=== PATIENT | female | born 1945 | race Hispanic/Latino ===

== ENCOUNTER 2018-04-03 16:10 | Emergency (ER) | payer MEDICARE, OTHER ==
[~2018-04-03] VITALS: Ht 149.9 cm; Wt 71.2 kg
[~2018-04-03 16:10] MED LIST: ASPIRIN81 MG; BENADRYL25 M1; CALCIUM CARBON500 MG PO; PROLIA60 MG/1 ML INJ; TYLENOL WITH C1 EACH PO; Z.2.CALCIUM 600 +1 E; [UNRECOGNIZED DRUG - OTHER]
== END 2018-04-03 17:46 | disposition home or self-care (01) ==
LOC: FSED 16:10
DX: R05 Cough (principal); J20.9 Acute bronchitis, unspecified; N30.90 Cystitis, unspecified without hematuria
CPT/HCPCS: 99282

== ENCOUNTER 2018-08-22 11:26 | Emergency (ER) | payer MEDICARE ==
[~2018-08-22] VITALS: Ht 149.9 cm; Wt 71.7 kg
--- OUTSIDE RECORDS SUMMARY | 2018-08-22 11:30 | XMS REPORT ---
Author Author [facility] Address Unknown Phone Unavailable Care Team Providers Care Grooming Salon Manager Name Role Phone Unavailable Unavailable Problems This patient has no known problems. Allergies, Adverse Reactions, Alerts This patient has no known allergies or adverse reactions. Medications This patient has no known medications. Results Test Description Test Time Test Comments Text Results Atomic Results Result Comments SCR MAMM BILATERAL BLAJIT CAD DIGITAL 2018-04-19 08:21:21 - SCR MAMM BILATERAL BALJIT CAD DIGITALBILATERAL DIGITAL SCREENING MAMMOGRAM 3D/2D WITH CAD: 04/16/2018CLINICAL: Asymptomatic. Digital breast tomosynthesis was performed in addition to routine CC and MLO views. Current mammographic images were evaluated by either a [employer] M-Vu or a [employer] ImageChecker CAD (computer aided detection system). Comparison is made to exams dated 04/03/2017 mammogram, 12/11 mammogram, and 11/24/2014 mammogram - [facility]. There are scattered fibroglandular tissues in both breasts. No suspicious mass, architectural distortion, malignant type calcification, or lymph node abnormality detected. Breast architecture is stable compared to prior exams.IMPRESSION: NEGATIVEThere is no mammographic evidence of malignancy. Resume annual screening mammography in one year. Ernst Godinez M.D. ss/penrad:04/19/2018 08:21:21 copy to: Snow Angelo M.D., ph: [phone], fax: [phone] Technologist: Tracy PHILLIP, [facility] [place] sent: BIRADS 1-2 Normal Mammogram BI-RADS: 1 Negative
[2018-08-22] MEDS ORDERED: HYDROCODONE/APAP 5MG-325MG TAB ONE (11:58)
[2018-08-22] MEDS ORDERED: ONDANSETRON HCL 4 MG ORAL DISINTEGRATING TAB ONE (11:58)
[2018-08-22] MEDS ORDERED: IBUPROFEN 200 MG TAB ONE (11:58)
[2018-08-22] MEDS ORDERED: HYDROCODONE/APAP 5MG-325MG TAB PO ONE (12:00)
[2018-08-22] MEDS ORDERED: ONDANSETRON HCL 4 MG ORAL DISINTEGRATING TAB PO ONE (12:00)
--- NOTE | 2018-08-22 12:15 | Diagnostic Imaging Report ---
Exam: Right/ Left foot AP and lateral. Clinical History: Right foot pain, history of stress fracture Comparison: None. Findings: 2 views of the right foot. There is decreased bone mineralization, which limits evaluation of the bony structures.. No acute, displaced fracture or dislocation. No lytic or blastic lesions. Minimal degenerative changes in the midfoot/hindfoot joints. No significant soft tissue swelling. Impression: 1. Generalized osteopenia, which limits evaluation of the bony structures. No acute, displaced fracture or dislocation, within the limitations of this study. Signed by: Dr. Reg Kramer M.D. on 08/22/2018 12:12 PM
[2018-08-22] MEDS ORDERED: IBUPROFEN 200 MG TAB PO ONE (12:30)
[2018-08-22 12:48] VITALS: BP 173/90
[2018-08-22] MEDS ORDERED: ENOXAPARIN SODIUM INJ 100 MG/ML SYR SC ONE (17:40)
[2018-08-22] MEDS ORDERED: ASPIRIN 81 MG CHEW TAB ONE (17:40)
[2018-08-22] MEDS ORDERED: ALBUTEROL SULF 0.083% NEB SOLN 3 ML NEB ONE (17:41)
[2018-08-22] MEDS ORDERED: IPRATROPIUM BROMIDE 0.02% 2.5 ML NEB ONE (17:42)
[2018-08-22] MEDS ORDERED: FAMOTIDINE 20 MG/2 ML VIAL IV ONE (17:43)
[2018-08-22] MEDS ORDERED: SODIUM CHLORIDE 0.9% 500ML 500 ML ONE (17:43)
[2018-08-22] MEDS ORDERED: AZITHROMYCIN 500MG/NS 250 ML 250 ML ONE (17:43)
[2018-08-22] MEDS ORDERED: CLONIDINE HCL 0.1 MG TAB ONE (18:31)
== END 2018-08-22 12:36 | disposition home or self-care (01) ==
LOC: FSED 11:26
DX: S93.621A Sprain of tarsometatarsal ligament of right foot, initial encounter (principal); X50.1XXA Overexertion from prolonged static or awkward postures, initial encounter; Y92.008 Other place in unspecified non-institutional (private) residence as the place of occurrence of the external cause
CPT/HCPCS: 29515; 73620; 99283; J0456; J1650; J7040; Q0162

== ENCOUNTER → 2019-01-22 | Day surgery (SDC) | payer MEDICARE, OTHER ==
[2019-01-20 14:22] LABS: BASOPHILS % 0.1 % (0.0-1.0); EOSINOPHILS % 0.3 % (0.0-6.0); HEMATOCRIT 41.7 % (34.2-44.1); HEMOGLOBIN 13.6 g/dL (12.0-16.0); LYMPHOCYTES % 1.9 % (18.0-39.1); MEAN CORPUSCULAR HEMOGLOBIN 31.9 pg (28-32); MEAN CORPUSCULAR HGB CONC 32.6 g/dL (31-35); MEAN CORPUSCULAR VOLUME 97.9 fL (81-99); MONOCYTES % 0.7 % (4.4-11.3); NEUTROPHILS % 5.3 % (38.7-80.0); PLATELET COUNT 269 x10e3/uL (140-360); RED BLOOD COUNT 4.26 x10e6/uL (3.6-5.1)
[~2019-01-22] MED LIST changes: +CALCIUM PO; +FENTANYL CITRATE/PF 100MCG/2 ML INJ ONE; +HYOSCYAMINE 0.125 MG TAB ONE; +MIDAZOLAM HCL 2 MG/2 ML VIAL ONE; +OMEPRAZOLE40 MG PO; +PROPOFOL IV EMULSION 10 MG/ML 50 ML VIAL ONE; +VIT C PO; +VIT D PO
--- NOTE | 2019-01-22 19:42 | Operative Report ---
DATE OF PROCEDURE: 01/22/2019 SURGEON: Nicho Guzman MD PROCEDURE: Colonoscopy with polypectomy. INDICATIONS FOR COLONOSCOPY: Surveillance colonoscopy, personal history of colon polyps. MEDICATIONS: The patient was done under MAC. Please see anesthesiologist's note. PROCEDURE IN DETAIL: With the patient in left lateral decubitus position, a flexible fiberoptic Olympus colonoscope was inserted into the rectum with ease and advanced all the way to the cecum. Two polyps were removed per cold snare polypectomy from the cecum. The scope was then withdrawn slowly. Mucosa overlying the ascending and the transverse appeared to be within normal limits. Distal descending and sigmoid colon, the prep was suboptimal with retained fecal material, but there was no obvious obstructing or constricting lesions. Minimal diverticulosis was noted in the sigmoid colon. The rectum appeared to be within normal limits. The scope was then retroflexed into the distal rectum and small internal hemorrhoids were noted, none of which was actively bleeding. The scope was then straightened out. It was subsequently withdrawn. The patient tolerated the procedure well. IMPRESSION: 1. Suboptimal prep, left colon. 2. Cecal polyps x2, removed per cold snare polypectomy. 3. Diverticulosis, minimal. 4. Internal hemorrhoids, none actively bleeding. PLAN: Follow up histology. Initiate high-fiber, low-fat diet. Initiate high-fiber supplement. The patient might benefit from a followup colonoscopy in 1-2 years after a better prep. Nicho Guzman MD [facility] [place][id number] cc: Catia Cat MD
== END | disposition home or self-care (01) ==
LOC: OR 14:30
PROVIDERS: ATTEND Internal Medicine Gastroenterology
DX: Z12.11 Encounter for screening for malignant neoplasm of colon (principal); Z68.30 Body mass index [BMI] 30.0-30.9, adult; Z88.5 Allergy status to narcotic agent; Z88.0 Allergy status to penicillin; D12.0 Benign neoplasm of cecum; K57.30 Diverticulosis of large intestine without perforation or abscess without bleeding; K64.8 Other hemorrhoids
CPT/HCPCS: 36415; 45385; 85025; 93005; J2250; J2704; J3010; 45380

== ENCOUNTER → 2021-04-10 | Outpatient (CLI) | payer MEDICARE ==
[~2021-04-10] MED LIST changes: -FENTANYL CITRATE/PF 100MCG/2 ML INJ ONE; -HYOSCYAMINE 0.125 MG TAB ONE; -MIDAZOLAM HCL 2 MG/2 ML VIAL ONE; -PROPOFOL IV EMULSION 10 MG/ML 50 ML VIAL ONE
== END ==
LOC: DX 10:07
PROVIDERS: ATTEND Internal Medicine
DX: M85.88 Other specified disorders of bone density and structure, other site (principal)
CPT/HCPCS: 77080

== ENCOUNTER → 2021-04-29 | Outpatient (CLI) | payer MEDICARE | LOC: MAMMO 12:45 | PROVIDERS: ATTEND Obstetrics & Gynecology | DX: Z12.31 Encounter for screening mammogram for malignant neoplasm of breast (principal) | CPT/HCPCS: 77067 ==

== ENCOUNTER → 2022-05-02 | Outpatient (CLI) | payer MEDICARE | LOC: DX 14:24 | PROVIDERS: ATTEND Internal Medicine | DX: M85.88 Other specified disorders of bone density and structure, other site (principal); M54.50 Low back pain, unspecified; M25.551 Pain in right hip | CPT/HCPCS: 72100; 77080 ==

== ENCOUNTER → 2022-06-23 | Outpatient (CLI) | payer MEDICARE | LOC: RAD 14:13 | PROVIDERS: ATTEND Orthopaedic Surgery | DX: M25.362 Other instability, left knee (principal) ==

== ENCOUNTER → 2023-11-10 | Outpatient (REF) | payer MEDICARE | LOC: MAMMO 13:00 | PROVIDERS: ATTEND Internal Medicine | DX: Z12.31 Encounter for screening mammogram for malignant neoplasm of breast (principal) | CPT/HCPCS: 77067 ==

== ENCOUNTER → 2024-05-18 | Outpatient (REF) | payer MEDICARE | LOC: DX 12:29 | PROVIDERS: ATTEND Internal Medicine | DX: M81.0 Age-related osteoporosis without current pathological fracture (principal); Z78.0 Asymptomatic menopausal state | CPT/HCPCS: 77080 ==

== ENCOUNTER → 2024-09-26 | Outpatient (REF) | payer MEDICARE | LOC: DX 12:41 | PROVIDERS: ATTEND Internal Medicine | DX: Z13.820 Encounter for screening for osteoporosis (principal); Z78.0 Asymptomatic menopausal state ==